=== PATIENT | male | born 1955 | race Caucasian/White ===

== ENCOUNTER 2021-04-15 16:36 | Inpatient (IN) | payer MEDICARE, SELFPAY ==
[~2021-04-15] VITALS: Ht 182.9 cm; Wt 138.1 kg
[2021-04-15 18:55] VITALS: BP 158/103
[2021-04-15] MEDS ORDERED: MAALOX 30 ML SUSP *UDC PO PRN (19:35)
[2021-04-15] MEDS ORDERED: MOM 30ML SUSPENSION UDC PO PRN (19:35)
[2021-04-15] MEDS ORDERED: ACETAMINOPHEN TAB 650MG DOSE (2X325MG) PO PRN (19:35)
[2021-04-15] MEDS ORDERED: LASI40TA9 PO (20:17)
[2021-04-15] MEDS ORDERED: VALI10TA PO (20:17)
[2021-04-15] MEDS ORDERED: PROP20TA72 PO (20:17)
[2021-04-15] MEDS ORDERED: HYDR-4517 PO (20:17)
[2021-04-15] MEDS ORDERED: HOME MED LIST COMPLETE! XX SCH (20:20)
[2021-04-15 22:00] VITALS: BP 154/99
--- NOTE | 2021-04-15 22:47 | REPVR ---
PROCEDURE INFORMATION: Exam: XR Chest Exam date and time: 04/15/2021 10:09 PM Age: 65 years old Clinical indication: Device placement; Ng tube; Additional info: Ng placement, sbo TECHNIQUE: Imaging protocol: XR of the chest. Views: 1 view. COMPARISON: No relevant prior studies available. FINDINGS: Tubes, catheters and devices: A nasogastric tube has been placed with its tip coiled in the stomach. Lungs: Unremarkable. No consolidation. Pleural spaces: There is some blunting of the left costophrenic angle. Heart/Mediastinum: Unremarkable. No cardiomegaly. Bones/joints: Unremarkable. Gastrointestinal tract: Gas is seen within the colon. IMPRESSION: The tip of the nasogastric tube is coiled in the stomach. Electronically signed by: Ac Birmingham On 04/15/2021 22:46:22 PM
[2021-04-15] MEDS ORDERED: MORPHINE 2 MG/ML 1ML VIAL (J2270) IV PRN (23:10)
[2021-04-15] MEDS ORDERED: ONDANSETRON 4MG/2ML VIAL IV PRN (23:10)
[2021-04-15] MEDS ORDERED: MORPHINE 4 MG/ML 1ML VIAL/SYRINGE (J2270) IV PRN (23:10)
--- NOTE | 2021-04-15 23:14 | HPEPDOC ---
[facility], [place] Medical History & Physical Date of Admission Apr 15, 2021 Date of Service: Apr 15, 2021 History and Physical CHIEF COMPLAINT: abdominal pain HISTORY OF PRESENT ILLNESS: 65 yo M with a hx of obesity, ANASTASIA, anxiety, HTN, was transfered from [facility] for general surgery evaluation in the setting of suspected bowel obstruction. Patient presented to ER this morning after developing generalized and worsening abominal pain (8/10 severity), with associated nausea and vomiting. He had a small BM of normal color this morning, and has not passed gas since. CT abdomen pelvis shoswed a partial mid to distal jejunal obstruction; a L inguinal hernia with minimal herniation of a small bowel loop was also seen. WBC was elevated to 18. PAST MEDICAL HISTORY: HTN Anxiety ANASTASIA, uses CPAP at home, does not remember settings C spine fx (remote), take vicodin. No lasting neurological sequelae PAST SURGICAL HISTORY: Laparoscopic hernia repair SOCIAL HISTORY: non smoker Drinks 8 beers ~3 times per week denies illicit drug use FAMILY HISTORY: reviewed with patient, no pertinent hx provided ALLERGIES: Please see below. REVIEW OF SYSTEMS: 10 point ROS conducted, relevant findings are noted in HPI HOME MEDICATIONS: Please see below. PHYSICAL EXAMINATION: VITAL SIGNS: please see below General: NAD, comfortable, healthy appearing, obese male HEENT: PERRLA, EOMI, sclerae clear Neck: supple, normal ROM, no JVD Respiratory: lungs CTAB, no wheeze, no rales, no crackles CVS: RRR, normal S1, S2, no murmurs Abdo: soft, midly tender diffusely to palpation Extremities: no edema, pulses 2+ MSK: no joint deformities, normal ROM Neuro: no focal neuro deficits, moving all 4 extremities, CN2-12 intact. Stren gth 5/5 in all 4 extremities. No nystagmus. Psych: calm, cooperative, AAO x 3 LABORATORY DATA: See below. IMAGING: KUB (04/15/21): IMPRESSION: The tip of the nasogastric tube is coiled in the stomach. MICROBIOLOGY: Please see below. ASSESSMENT: 65 yo M with a hx of obesity, ANASTASIA, anxiety, HTN, was transfered from [facility] for general surgery evaluation due to a partial SBO. Seen bedside by Dr. Costa, plan to advance NGT. Keep NPO, sips and chips ok. continue to monitor for bowel activity. . PLAN: Partial SBO - elevated WBC 18.0 at RH. Repeat CBC, CMP - obtain blood cx - start empiric zosyn - start pantoprazole 40 mg IV daily - IV zofran prn - NPO except for sips/chips - start NS 150 cc/hr - general surgery Dr. 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 TEDs. Vital Signs Vital Signs Date Time Temp Pulse Resp B/P (MAP) Pulse Ox O2 Delivery O2 Flow Rate FiO2 04/15/21 22:00 99.2 108 18 154/99 (117) 93 04/15/21 18:55 Room Air Home Medications Scheduled PRN Diazepam (Valium) 10 Mg Tablet, 10 MG PO QHS PRN for SLEEP Furosemide (Lasix) 40 Mg Tablet, 40 MG PO DAILY PRN for FLUID RETENTION Hydrocodone/Acetaminophen (Hydrocodone-Acetamin 10-325 mg) 1 Each Tablet, 1 TAB PO TID PRN for PAIN LEVEL 4-7 Propranolol HCl (Propranolol HCl) 20 Mg Tablet, 20 MG PO DAILY PRN for TREMORS Allergies Coded Allergies: No Known Allergies (Unverified , 04/15/21) REENA MELVIN MD Apr 15, 2021 23:14
[2021-04-16] MEDS ORDERED: LORazepam 2 MG TAB PO PRN (00:15)
[2021-04-16] MEDS: PIPERACILLIN/TAZOBACTAM SOD 4.5 GM in D5W MINI-BAG PLUS 50 ML IV SCH ×3 (00:17→11:06)
[2021-04-16 00:27] LABS: BASO % 0.3 % (0.0-1.0); EOS % 0.1 % (0.0-3.0); HEMATOCRIT 47.4 % (42.0-52.0); HEMOGLOBIN 16.5 g/dl (13.5-17.5); LYMPH % 6.1 % (24.0-44.0); MEAN CORPUSCULAR HEMOGLOBIN 31.1 pg (27.0-33.0); MEAN CORPUSCULAR HGB CONC 34.8 g/dl (32.0-36.5); MEAN CORPUSCULAR VOLUME 89.3 fl (80.0-96.0); MONO # 0.8 10^3/uL (0.0-0.8); MONO % 5.3 % (2.0-8.0); NEUTROPHILS % 87.6 % (36.0-66.0); PLATELET COUNT, AUTOMATED 184 10^3/uL (150-450); RED BLOOD COUNT 5.31 10^6/uL (4.30-6.10)
[2021-04-16 00:47] LABS: ALBUMIN 3.6 GM/DL (3.2-5.2); ALT/SGPT 24 U/L (12-78); BILIRUBIN,TOTAL 0.8 MG/DL (0.2-1.0); BLOOD UREA NITROGEN 17 MG/DL (7-18); CALCIUM LEVEL 8.8 MG/DL (8.8-10.2); CARBON DIOXIDE LEVEL 26 MEQ/L (21-32); CHLORIDE LEVEL 109 MEQ/L (98-107); GLOMERULAR FILTRATION RATE > 60.0 (>49); GLUCOSE, FASTING 138 MG/DL (70-100); MAGNESIUM LEVEL 2.3 MG/DL (1.8-2.4); POTASSIUM SERUM 4.3 MEQ/L (3.5-5.1); SODIUM LEVEL 141 MEQ/L (136-145); TOTAL PROTEIN 6.8 GM/DL (6.4-8.2)
[2021-04-16] MEDS: NS 1,000 ML IV SCH ×2 (01:01→09:14)
[2021-04-16] MEDS: THIAMINE 100 MG TAB PO SCH ×3 (02:18→22:31)
[2021-04-16 06:00] VITALS: BP_SYST 156; BP_DIAS 90; BP_DIAS 98
[2021-04-16] MEDS ORDERED: FLUBLOK(EGG FREE)(QUAD)INFLUENZA VACC 0.5ML SYRINGE 18YRS & OLDER IM ONE (09:00)
--- NOTE | 2021-04-16 09:00 | IPNPDOC ---
Text Note Date of Service The patient was seen on 04/16/21. NOTE General surgery. Dr Costa The patient is a 65-year-old male admitted 04/15/2021 with SBO. This morning, the patient states his abdominal pain is much improved. Reports less bloating. Reports flatus, no BM yet. NG tube in place. Afebrile. Heart rate 96, respiratory rate 17, blood pressure 156/90, 95% room air Awake and alert, resting comfortably in bed, no acute distress NG tube in place Lungs clear to auscultation S1-S2 regular rate and rhythm Abdomen obese, still some mild distention but the patient reports this is improved compared with yesterday, there is no guarding or rebound, soft, nontender. No new labs this morning NG tube output is not recorded however there is approximately 500 mL in the canister at the bedside. Assessment/plan SBO The patient is reviewed and examined as per Dr Costa. The patient reports improvement this morning with abdominal pain resolved and reports flatus. No BM yet NG tube is in place, there is approximately 500 mL output in the canister at the bedside. NPO IV fluids/IV Zosyn as per hospitalist. Encourage ambulation AXR this a.m. is pending Continue to monitor. Addendum. Patient is reviewed with Dr. Costa AXR imaging is reviewed as per Dr Costa, imaging is improved. Nonspecific bowel gas pattern, no obstruction. Plan to discontinue NG tube, begin clear liquids, advance diet as tolerated. VS,Fishbone, I+O VS, Fishbone, I+O Laboratory Tests 04/16/21 00:11 Vital Signs Date Time Temp Pulse Resp B/P (MAP) Pulse Ox O2 Delivery O2 Flow Rate FiO2 04/16/21 06:00 98.7 104 17 156/98 (117) 95 Room Air I&O- Last 24 Hours up to 6 AM 04/16/21 06:00 Intake Total 360 ml Output Total 700 ml Balance -340 ml Doris Ng Apr 16, 2021 09:00
[2021-04-16] MEDS: MULTIVITAMINS/MINERALS THERAP 1 TAB PO SCH (09:14)
[2021-04-16] MEDS: FOLIC ACID 1 MG TAB PO SCH (09:14)
[2021-04-16] MEDS: PANTOPRAZOLE 40MG VIAL (C9113 PER 1) IV SCH (09:14)
--- NOTE | 2021-04-16 10:26 | REP ---
INDICATION: sbo COMPARISON: None. TECHNIQUE: Two supine views of the abdomen and pelvis. FINDINGS: Nasogastric tube is identified below the left hemidiaphragm. Bowel gas pattern is nonspecific. Visualized musculoskeletal structures are intact. No organomegaly. No significant foreign body. IMPRESSION: Nonspecific bowel pattern. No evidence for obstruction. <Electronically signed by Abhi Mcknight > 04/16/21 [id number]
[2021-04-16 11:27] LABS: INR 0.95
[2021-04-16 11:28] LABS: PARTIAL THROMBOPLASTIN TIME 20.1 SECONDS (25.9-37.0)
[2021-04-16 14:00] VITALS: BP 134/93
--- NOTE | 2021-04-16 16:10 | CR ---
CONSULTATION DATE: 04/15/2021 REASON FOR CONSULTATION: Small bowel obstruction. BRIEF HISTORY OF PRESENT ILLNESS: Patient is a 65-year-old morbidly obese male who is transferred from [facility] for possible small bowel obstruction, essentially had crampy abdominal pain that progressed throughout the morning, went to the Emergency Room for additional evaluation, had a CT scan which showed a small bowel obstruction. Has had a previous umbilical hernia repair in the past. From his standpoint, he had some nausea and vomiting with 500 ml of emesis and then had a NG-tube placed with 700 ml of bilious return and since that NG-tube was placed, he does not have anymore pain or discomfort on his abdomen, no crampy abdominal pain and no nausea, no vomiting. PAST MEDICAL HISTORY: Significant for history of hypertension, anxiety, obstructive sleep apnea, C-spine fracture, history of laparoscopic umbilical hernia repair. PHYSICAL EXAMINATION: Physical exam reveals a morbidly obese male who looks his stated age. HEENT is unremarkable. Neck is supple without adenopathy. Lungs are clear to auscultation without crackles, wheezes or rhonchi. Heart is regular without murmur. Abdomen is softly distended, tympanitic without guarding, rebound or peritoneal signs. Extremities are warm and well-perfused. X-rays reveal a small bowel obstruction from [facility]. IMPRESSION/PLAN: Patient has evidence of small bowel obstruction on his x-rays although clinically he has improved since his NG-tube has been placed. Would recommend that he stay NPO, NG-tube in overnight. Will reevaluate with x-rays in the morning. If he has some significant progress, then possibly discontinuing his NG-tube, progressing his diet and is dependent on overall his clinical presentation. Unfortunately, given his obesity, it is little bit harder to tell how much he has for distention and may benefit from some follow-up x-rays in the morning. Otherwise, will see how he is doing. At this time, no surgical intervention is necessary and seems to have made some improvement since his emesis/NG-tube placement.
[2021-04-16] MEDS ORDERED: FUROSEMIDE 40 MG TAB PO PRN (17:35)
[2021-04-16] MEDS ORDERED: diazePAM 10 MG TAB PO PRN (17:35)
[2021-04-16] MEDS ORDERED: PROPRANOLOL 20 MG TAB PO PRN (17:35)
[2021-04-16] MEDS ORDERED: HYDROcodone/APAP LIQUID 7.5-325MG 15ML UDC (LORTAB ELIXIR) PO PRN (17:35)
--- NOTE | 2021-04-16 17:39 | IPNPDOC ---
Date Seen The patient was seen on 04/16/21. Progress Note SUBJECTIVE: Large bowel movement later in the day, NG tube taken out by surgery and patient was started on diet. +flatus. Denies abdominal pain, chest pain, shortness of breath, fevers or chills. OBJECTIVE: PHYSICAL EXAMINATION: VITAL SIGNS: please see below General: NAD, comfortable in bed, AAOX 3 HEENT: PERRLA, EOMI, sclerae clear Neck: supple, normal ROM, no JVD Respiratory: lungs CTAB, no wheeze, no rales, no crackles CVS: RRR, normal S1, S2, no murmurs Abdo: soft, nontender, distended, BS + in 4 quad Extremities: no edema, pulses 2+ MSK: no joint deformities, normal ROM Neuro: no focal neuro deficits, CN2-12 intact. Psych: mood and affect appropriate LABORATORY DATA: See below. IMAGING: Repeat KUB (04/16/21): Nonspecific bowel pattern. No evidence for obstruction. MICROBIOLOGY: Please see below. ASSESSMENT: 65 yo M with a hx of obesity, ANASTASIA, anxiety, HTN, transferred from [facility] for general surgery evaluation due to a partial SBO. 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 opiate w/d -See above DVT px -Lovenox DISPOSITION: Plan is home when medically improved. VS, I&O, 24H, Fishbone Vital Signs/I&O Vital Signs Date Time Temp Pulse Resp B/P (MAP) Pulse Ox O2 Delivery O2 Flow Rate FiO2 04/16/21 14:00 98.7 110 18 134/93 (107) 96 Room Air I&O- Last 24 Hours up to 6 AM 04/16/21 06:00 Intake Total 360 ml Output Total 700 ml Balance -340 ml Laboratory Data 24H LABS Laboratory Tests 2 04/16/21 00:11: Immature Granulocyte % (Auto) 0.6, Neutrophils (%) (Auto) 87.6H, Lymphocytes (%) (Auto) 6.1L, Monocytes (%) (Auto) 5.3, Eosinophils (%) (Auto) 0.1, Basophils (%) (Auto) 0.3, Neutrophils # (Auto) 14.0H, Lymphocytes # (Auto) 1.0L, Monocytes # (Auto) 0.8, Eosinophils # (Auto) 0.0, Basophils # (Auto) 0.0, Nucleated Red Blood Cells % (auto) 0.0, Anion Gap 6L, Glomerular Filtration Rate > 60.0, Calcium Level 8.8, Magnesium Level 2.3, Total Bilirubin 0.8, Aspartate Amino Transf (AST/SGOT) 16, Alanine Aminotransferase (ALT/SGPT) 24, Alkaline Phosphatase 45, Total Protein 6.8, Albumin 3.6, Albumin/Globulin Ratio 1.1 04/16/21 11:04: Prothrombin Time 13.0, Prothromb Time International Ratio 0.95, Activated Partial Thromboplast Time 20.1L CBC/BMP Laboratory Tests 04/16/21 00:11 Microbiology Microbiology 04/16/21 Blood Culture, Received Pending 04/16/21 Blood Culture, Received Pending Mercy Whyte MD Apr 16, 2021 17:39
[2021-04-16] MEDS ORDERED: SENOKOT S TAB PO SCH (21:00)
[2021-04-16 22:00] VITALS: BP_SYST 152; BP_SYST 158; BP_DIAS 86; BP_DIAS 90
[2021-04-16] MEDS: DOCUSATE SODIUM 100MG CAPSULE PO SCH (22:30)
[2021-04-17 06:00] VITALS: BP_SYST 154; BP_SYST 156; BP_DIAS 86; BP_DIAS 92
[2021-04-17] MEDS: PANTOPRAZOLE 40MG VIAL (C9113 PER 1) IV SCH (08:31)
[2021-04-17] MEDS: FOLIC ACID 1 MG TAB PO SCH (08:32)
[2021-04-17] MEDS: THIAMINE 100 MG TAB PO SCH (08:32)
[2021-04-17] MEDS: MULTIVITAMINS/MINERALS THERAP 1 TAB PO SCH (08:32)
[2021-04-17] MEDS: DOCUSATE SODIUM 100MG CAPSULE PO SCH (08:32)
--- NOTE | 2021-04-17 08:43 | IPNPDOC ---
Text Note Date of Service The patient was seen on 04/17/21. NOTE General surgery. Dr Costa The patient is a 65-year-old male admitted 04/15/2021 with SBO. NG tube was removed yesterday afternoon, the patient had full liquids last evening and regular diet is ordered this morning. The patient reports 2 bowel movements last evening, flatus. Denies nausea vomiting. Afebrile. Heart rate 96, respiratory rate 18, blood pressure 154/86, 96% room air Awake and alert, resting comfortably in bed, no acute distress Lungs clear to auscultation S1-S2 regular rate and rhythm Abdomen obese, soft, nontender, nondistended. No new labs this morning Assessment/plan SBO The patient is reviewed and examined as per Dr Costa. The patient reports resolution of abdominal pain. Having bowel movements and flatus. Tolerated full liquids last evening, regular diet is ordered for this morning. From surgical standpoint, as long as tolerates regular diet this morning the patient would be stable for discharge. This is relayed to the hospitalist. VS,Fishbone, I+O VS, Fishbone, I+O Vital Signs Date Time Temp Pulse Resp B/P (MAP) Pulse Ox O2 Delivery O2 Flow Rate FiO2 04/17/21 06:00 98.4 90 18 154/86 (108) 96 Room Air I&O- Last 24 Hours up to 6 AM 04/17/21 06:00 Intake Total 1540 ml Output Total 700 ml Balance 840 ml Doris Ng Apr 17, 2021 08:43
[2021-04-17] MEDS ORDERED: ENOXAPARIN 40MG/0.4ML SYRINGE (J1650 PER 10MG) SC SCH (09:00)
[2021-04-17 09:22] LABS: HEMATOCRIT 46.4 % (42.0-52.0); HEMOGLOBIN 15.7 g/dl (13.5-17.5); MEAN CORPUSCULAR HGB CONC 33.8 g/dl (32.0-36.5); MEAN CORPUSCULAR VOLUME 91.7 fl (80.0-96.0); PLATELET COUNT, AUTOMATED 157 10^3/uL (150-450); RED BLOOD COUNT 5.06 10^6/uL (4.30-6.10); WHITE BLOOD COUNT 8.2 10^3/uL (4.0-10.0)
[2021-04-17 10:13] LABS: ALBUMIN 3.3 GM/DL (3.2-5.2); ALT/SGPT 25 U/L (12-78); BILIRUBIN,TOTAL 0.8 MG/DL (0.2-1.0); BLOOD UREA NITROGEN 11 MG/DL (7-18); CALCIUM LEVEL 8.9 MG/DL (8.8-10.2); CARBON DIOXIDE LEVEL 27 MEQ/L (21-32); CHLORIDE LEVEL 107 MEQ/L (98-107); CREATININE FOR GFR 0.85 MG/DL (0.70-1.30); GLOMERULAR FILTRATION RATE > 60.0 (>49); GLUCOSE, FASTING 92 MG/DL (70-100); POTASSIUM SERUM 3.8 MEQ/L (3.5-5.1); SODIUM LEVEL 140 MEQ/L (136-145); TOTAL PROTEIN 6.9 GM/DL (6.4-8.2)
[2021-04-17] MEDS ORDERED: MIRA3350 PO (10:59)
[2021-04-17] MEDS ORDERED: COLA100C5 PO (10:59)
[2021-04-17] MEDS ORDERED: VITMTA PO (10:59)
[2021-04-17] MEDS ORDERED: LASI40TA9 PO (10:59)
--- NOTE | 2021-04-17 19:30 | DS.PDOC ---
Discharge Summary General Date of Admission Apr 15, 2021 at 18:54 Date of Discharge 04/17/21 Attending Physician: Mercy Whyte MD Discharge Summary PROCEDURES PERFORMED DURING STAY: none ADMITTING DIAGNOSES: Small bowel obstruction HTN Essential tremor Sleep disturbance anxiety Chronic C spine neck pain 2/2 remote hx of fx Excessive alcohol use Sinus tachycardia r/o alcohol vs. 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 HISTORY OF PRESENT ILLNESS: 65 yo M with a hx of obesity, ANASTASIA, anxiety, HTN, was transfered from [facility] for general surgery evaluation in the setting of suspected bowel obstruction. Patient presented to ER this morning after developing generalized and worsening abominal pain (8/10 severity), with associated nausea and vomiting. He had a small BM of normal color this morning, and has not passed gas since. CT abdomen pelvis shoswed a partial mid to distal jejunal obstruction; a L inguinal hernia with minimal herniation of a small bowel loop was also seen. WBC was elevated to 18. Patient was admitted for further treatment of SBO. HOSPITAL COURSE: The following issues were addressed and managed during his hospital stay: Small bowel obstruction- resolved -NG tube removed after improved KUB above, large BM 04/16/21 -Surgery started on diet, DC IV fluids. Tolerated diet well. 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 ALLERGIES: Please see below. PHYSICAL EXAMINATION ON DISCHARGE: VITAL SIGNS: please see below General: NAD, comfortable in bed, AAOX 3 HEENT: PERRLA, EOMI, sclerae clear Neck: supple, normal ROM, no JVD Respiratory: lungs CTAB, no wheeze, no rales, no crackles CVS: RRR, normal S1, S2, no murmurs Abdo: obese, soft, nontender, distended, BS + in 4 quad Extremities: no edema, pulses 2+ MSK: no joint deformities, normal ROM Neuro: no focal neuro deficits, CN2-12 intact. Psych: mood and affect appropriate LABORATORY DATA: See below. IMAGING: Repeat KUB (04/16/21): Nonspecific bowel pattern. No evidence for obstruction. PROGNOSIS: good ACTIVITY: As tolerated DIET: low salt DISPOSITION: 01 Home, Self-Care. DISCHARGE INSTRUCTIONS/ ITEMS TO FOLLOWUP ON ON OUTPATIENT: 1. Please follow up with PCP after discharge within 1-2 weeks after discharge. 2. Call MD or go to the nearest ER if you have abdominal pain, no bowel movements or any other concerns. DISCHARGE CONDITION: Stable TIME SPENT ON DISCHARGE: 35 minutes. Vital Signs/I&Os Vital Signs Date Time Temp Pulse Resp B/P (MAP) Pulse Ox O2 Delivery O2 Flow Rate FiO2 04/17/21 06:00 98.4 90 18 154/86 (108) 96 Room Air I&O- Last 24 Hours up to 6 AM 04/17/21 06:00 Intake Total 1540 ml Output Total 700 ml Balance 840 ml Laboratory Data Labs 24H Laboratory Tests 2 04/17/21 09:10: Nucleated Red Blood Cells % (auto) 0.0, Anion Gap 6L, Glomerular Filtration Rate > 60.0, Calcium Level 8.9, Total Bilirubin 0.8, Aspartate Amino Transf (AST/SGOT) 16, Alanine Aminotransferase (ALT/SGPT) 25, Alkaline Phosphatase 38L, Total Protein 6.9, Albumin 3.3, Albumin/Globulin Ratio 0.9 CBC/BMP Laboratory Tests 04/17/21 09:10 Microbiology Microbiology 04/16/21 Blood Culture - Preliminary, Resulted No growth after 24 hours . All specim... 04/16/21 Blood Culture - Preliminary, Resulted No growth after 24 hours . All specim... Discharge Medications Scheduled Docusate Sodium (Colace) 100 Mg Capsule, 100 MG PO BID Furosemide (Lasix) 40 Mg Tablet, 40 MG PO DAILY Multivitamins (Thera M Plus Tablet) 1 Each Tablet, 1 TAB PO DAILY Scheduled PRN Diazepam (Valium) 10 Mg Tablet, 10 MG PO QHS PRN for SLEEP, (Reported) Hydrocodone/Acetaminophen (Hydrocodone-Acetamin 10-325 mg) 1 Each Tablet, 1 TAB PO TID PRN for PAIN LEVEL 4-7, (Reported) Polyethylene Glycol 3350 (Miralax) 119 Gm Powder, 17 GM PO DAILY PRN for CONSTIPATION dilute in 8 ounces of water or juice Propranolol HCl (Propranolol HCl) 20 Mg Tablet, 20 MG PO DAILY PRN for TREMORS, (Reported) Allergies Coded Allergies: No Known Allergies (Unverified , 04/15/21) Mercy Whyte MD Apr 17, 2021 19:30
== END 2021-04-17 13:54 | disposition home or self-care (01) | DRG 389 ==
LOC: M MSPAV 18:54
PROVIDERS: ADMIT Family Medicine; ATTEND Internal Medicine
DX: K56.600 Partial intestinal obstruction, unspecified as to cause (principal); Z68.41 Body mass index [BMI] 40.0-44.9, adult; E66.9 Obesity, unspecified; I10 Essential (primary) hypertension; F41.9 Anxiety disorder, unspecified; F10.10 Alcohol abuse, uncomplicated; M54.2 Cervicalgia; G25.0 Essential tremor; Z79.899 Other long term (current) drug therapy; K40.90 Unilateral inguinal hernia, without obstruction or gangrene, not specified as recurrent; G47.33 Obstructive sleep apnea (adult) (pediatric)